=== PATIENT | female | born 1975 | race American Indian/Alaskan Native ===

== ENCOUNTER 2017-02-04 07:40 | Outpatient (CLI) | payer BC ==
--- NOTE | 2017-02-04 14:23 | Mammography Report ---
BILATERAL DIGITAL SCREENING MAMMOGRAM with CAD: 02/04/17 07:40:00 CLINICAL: Routine screening. COMPARISON:02/26/15 FINDINGS: The breasts are heterogeneously dense, which may obscure small masses. No mass, architectural distortion or suspicious calcifications. IMPRESSION: No mammographic evidence of malignancy. BI-RADS CATEGORY: 1 - - Negative RECOMMENDATION: Routine mammographic screening in one year. COMMENT: Patient follow-up letters are generated by our [employer] application.
== END 2017-02-04 07:41 | disposition home or self-care (01) ==
LOC: MAMMO 07:40
PROVIDERS: ATTEND Obstetrics & Gynecology Gynecology
DX: Z12.31 Encounter for screening mammogram for malignant neoplasm of breast (principal)
CPT/HCPCS: 77067; G0202

== ENCOUNTER 2017-03-04 07:56 | Outpatient (CLI) | payer BC ==
--- NOTE | 2017-03-04 09:04 | Mammography Report ---
BILATERAL SCREENING DIGITAL BREAST TOMOSYNTHESIS (DBT) : 03/04/17 08:15:00 CLINICAL: Routine screening. She had a negative 2D screening mammogram 02/04/17. COMPARISON:02/04/17, 02/26/15 and 02/06/14 mammograms FINDINGS: The breasts are heterogeneously dense, which may obscure small masses. An oval partially circumscribed left inner mass or cyst measures 1.4 cm and requires additional evaluation with ultrasound. It is not identified on any of the prior mammograms including the most recent 2D screening mammogram. A 4 mm right upper benign intraparenchymal lymph node has central fat and has been seen on a prior mammogram. BI-RADS CATEGORY: 0 -- Needs Additional Imaging RECOMMENDATION: Left breast ultrasound. COMMENT: Patient follow-up letters are generated by our [employer] application.
== END 2017-03-04 07:57 | disposition home or self-care (01) ==
LOC: MAMMO 07:56
PROVIDERS: ATTEND Obstetrics & Gynecology Gynecology
DX: Z12.31 Encounter for screening mammogram for malignant neoplasm of breast (principal)
CPT/HCPCS: 77063; 77067

== ENCOUNTER 2017-05-06 07:49 | Outpatient (CLI) | payer BC ==
--- NOTE | 2017-05-09 16:43 | Ultrasound Report ---
LEFT BREAST ULTRASOUND: 05/06/17 07:49:00 CLINICAL: Recall to evaluate an inner circumscribed asymmetry identified on screening DBT views. COMPARISON: 03/04/17 mammographic screening with DBT FINDINGS: Ultrasound of the inner left breast was performed and demonstrated an oval smooth anechoic benign cyst at 9 o'clock 1 cm from the nipple. It measures 1.5 x 0.8 x 1.3 cm and correlates with the mammographic asymmetry.No solid mass or shadowing. IMPRESSION: A benign 1.5 cm left breast cyst at 9 o'clock 1 cm from the nipple. BI-RADS 2 - - Benign RECOMMENDATION: Routine mammographic screening in one year.
== END 2017-05-06 07:50 | disposition home or self-care (01) ==
LOC: US 07:49
PROVIDERS: ATTEND Obstetrics & Gynecology Gynecology
DX: N60.02 Solitary cyst of left breast (principal)

== ENCOUNTER 2017-09-02 07:53 | Outpatient (CLI) | payer BC ==
[2017-09-02 08:22] LABS: Hematocrit 38.7 % (30.3-42.9); Hemoglobin 12.9 gm/dl (10.1-14.3); Mean Corpuscular HGB Conc 33 % (30-34); Mean Corpuscular Hemoglobin 28 pg (28-32); Mean Corpuscular Volume 85 fl (79-97); Platelet Count 263 K/mm3 (140-440); Red Blood Count 4.54 M/mm3 (3.65-5.03); Red Cell Distribution Width 12.7 % (13.2-15.2)
[2017-09-02 08:41] LABS: Alanine Aminotransferase 21 units/L (7-56); Albumin 4.4 g/dL (3.9-5); BUN/Creatinine Ratio 21; Blood Urea Nitrogen 15 mg/dL (7-17); Calcium 9.3 mg/dL (8.4-10.2); Chol/HDL Ratio 2.21 %; HDL Cholesterol 85 mg/dL (40-59); Hemolysis Index 0; LDL Cholesterol,Direct 116 mg/dL (50-130)
== END 2017-09-02 07:54 | disposition home or self-care (01) ==
LOC: LAB 07:53
PROVIDERS: ATTEND Internal Medicine
DX: E11.65 Type 2 diabetes mellitus with hyperglycemia (principal); R53.83 Other fatigue; E78.2 Mixed hyperlipidemia; E55.9 Vitamin D deficiency, unspecified; Z88.1 Allergy status to other antibiotic agents
CPT/HCPCS: 36415; 80053; 80061; 82306; 83036; 84443; 85027